=== PATIENT | male | born 1975 | race Caucasian/White ===

== ENCOUNTER 2017-04-15 14:07 | Emergency (ER) | payer OTHER ==
[~2017-04-15] VITALS: Ht 177.8 cm; Wt 90.3 kg
[2017-04-15 14:54] LABS: Basophils # (auto) 0 uL; Basophils % (auto) 0.2 % (0.0-2.0); CONDITION Y; Eosinophils # (auto) 0 uL; Eosinophils % (auto) 0.5 % (0.0-7.0); Hematocrit 48.9 % (41.0-53.0); Hemoglobin 16.6 g/dL (13.5-17.5); Lymphocytes # (auto) 1.9 uL; Lymphocytes % (auto) 24.3 % (10.0-50.0); Mean Corpuscular Hemoglobin 30.3 pg (28.0-32.0); Mean Corpuscular Hgb Conc. 33.9 g/dL (32.0-36.0); Mean Corpuscular Volume 89.4 fL (80.0-100.0); Mean Platelet Volume 7.3 fL (7.4-10.4); Monocytes # (auto) 0.6 uL; Monocytes % (auto) 7.4 % (0.0-12.0); Neutrophils # (auto) 5.4 uL; Neutrophils % (auto) 67.6 % (37.0-80.0); Platelet Count (auto) 319 10^3/uL (140-450); Red Cell Distribution Width 13.3 % (11.6-16.0); White Blood Cell 7.9 10^3/uL (4.4-10.8)
[2017-04-15 15:16] LABS: Albumin 4.5 g/dL (3.4-5.0); BUN/Creatinine Ratio 11.7; Calcium 9.6 mg/dL (8.5-10.1); Potassium 3.8 mmol/L (3.5-5.1)
[2017-04-15 15:19] LABS: Bilirubin, Total 0.7 mg/dL (0.2-1.0); Total Protein 8.4 g/dL (6.4-8.2)
[2017-04-15] MEDS ORDERED: FAMOTIDINE (10MG/ML) 2ML VL IV ONE (15:45)
[2017-04-15] MEDS ORDERED: ONDANSETRON HCL 4 MG/2 ML VIAL IV ONE (15:45)
[2017-04-15] MEDS: SODIUM CHLORIDE 0.9% 1,000 ML IV ONE ×2 (15:45→16:24)
[2017-04-15] MEDS ORDERED: SODIUM CHLORIDE 0.9% 1,000 ML IV ONE (15:45)
[2017-04-15] MEDS ORDERED: diphenhdrAMINE HCL 50 MG/1 ML VL ONE (15:51)
[2017-04-15] MEDS ORDERED: diphenhdrAMINE HCL 50 MG/1 ML VL IV ONE (16:00)
[2017-04-15 16:04] VITALS: BP 138/78
[2017-04-15] MEDS ORDERED: KETOROLAC TROMETH 30 MG/ML 1ML VIAL IV ONE (16:45)
== END 2017-04-15 16:58 | disposition home or self-care (01) ==
LOC: ER 14:07
DX: R11.2 Nausea with vomiting, unspecified (principal); R19.7 Diarrhea, unspecified; F43.10 Post-traumatic stress disorder, unspecified; Z88.6 Allergy status to analgesic agent
CPT/HCPCS: 36415; 80053; 85025; 96361; 96374; 96375; 99284; J1200; J1885; J2405; J3490; J7030

== ENCOUNTER 2017-04-30 14:45 | Emergency (ER) | payer OTHER ==
[~2017-04-30] VITALS: Ht 177.8 cm; Wt 90.7 kg
[2017-04-30 15:35] LABS: Basophils # (auto) 0 uL; Basophils % (auto) 0.3 % (0.0-2.0); Eosinophils # (auto) 0.1 uL; Eosinophils % (auto) 0.5 % (0.0-7.0); Hematocrit 47.4 % (41.0-53.0); Hemoglobin 16.5 g/dL (13.5-17.5); Lymphocytes # (auto) 1.6 uL; Lymphocytes % (auto) 16.4 % (10.0-50.0); Mean Corpuscular Hemoglobin 31.1 pg (28.0-32.0); Mean Corpuscular Hgb Conc. 34.8 g/dL (32.0-36.0); Mean Corpuscular Volume 89.3 fL (80.0-100.0); Mean Platelet Volume 7.3 fL (6.9-10.8); Monocytes # (auto) 0.7 uL; Monocytes % (auto) 6.6 % (0.0-12.0); Neutrophils # (auto) 7.5 uL; Neutrophils % (auto) 76.2 % (37.0-80.0); Platelet Count (auto) 294 10^3/uL (140-450); Red Cell Distribution Width 13.1 % (11.8-14.3); White Blood Cell 9.9 10^3/uL (4.4-10.8)
[2017-04-30] MEDS ORDERED: SODIUM CHLORIDE 0.9% 1,000 ML IVB ONE (15:38)
[2017-04-30] MEDS ORDERED: ALBUTEROL SULF 2.5 MG/0.5ML(0.5%) NEB SOLN HHN ONE (15:45)
[2017-04-30] MEDS ORDERED: methylPREDNISolone SOD SUCC 125 MG/2 ML VL IV ONE (15:45)
[2017-04-30] MEDS ORDERED: PROCHLORPERAZINE EDISYLATE 5 MG/ML 2ML VIAL IV ONE (15:45)
[2017-04-30] MEDS ORDERED: IPRATROPIUM BROM 0.5 MG/2.5ML INH SOL HHN ONE (15:45)
[2017-04-30 15:46] LABS: Albumin 4.4 g/dL (3.4-5.0); BUN/Creatinine Ratio 13.4; Bilirubin, Total 0.8 mg/dL (0.2-1.0); Calcium 8.9 mg/dL (8.5-10.1); Potassium 3.9 mmol/L (3.5-5.1); Total Protein 8.6 g/dL (6.4-8.2)
[2017-04-30 16:41] LABS: Magnesium 2.1 mg/dL (1.6-2.6)
[2017-04-30 18:00] VITALS: BP 119/68
== END 2017-04-30 18:36 | disposition home or self-care (01) ==
LOC: ER 15:00
DX: J20.9 Acute bronchitis, unspecified (principal); R11.2 Nausea with vomiting, unspecified; R42 Dizziness and giddiness; Z88.6 Allergy status to analgesic agent
CPT/HCPCS: 36415; 71010; 80053; 82150; 83690; 83735; 85025; 94640; 94761; 96361; 96374; 96375; 99285; J0780; J2930; J7030